=== PATIENT | female | born 1930 | race Caucasian/White ===

== ENCOUNTER 2017-12-01 16:29 | Emergency (ER) | payer MEDICARE, OTHER ==
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
[2017-12-01] MEDS ORDERED: 0.9 % SODIUM CHLORIDE 1,000 ML IV SCH (17:00)
[2017-12-01] MEDS ORDERED: 0.9 % SODIUM CHLORIDE 1,000 ML IV ONE (17:10)
[2017-12-01 17:11] LABS: BASOPHILS % 0.3 (0.0-1.5); EOSINOPHILS % 0.4 % (0.0-6.8); MEAN CORPUSCULAR HEMOGLOBIN 25.9 pg (28.0-34.0); MEAN CORPUSCULAR VOLUME 82.8 fl (80.0-100.0); MONOCYTES % 4.1 % (0.0-11.0); NEUTROPHILS # 6.3 # k/uL (1.4-7.7)
[2017-12-01 17:24] LABS: eGFR (African) > 60; eGFR (Non-African) > 60
[2017-12-01] MEDS ORDERED: cefTRIAXone SODIUM ADVANTAGE 1 GM in NORMAL SALINE ADD-VANTAGE 50 ML IV ONE (17:50)
[2017-12-01] MEDS ORDERED: cefTRIAXone SODIUM 1 GM VIAL ONE (17:56)
[2017-12-01 17:57] LABS: APPEARANCE,URINE CLOUDY (CLEAR); COLOR,URINE YELLOW (YELLOW); OCCULT BLOOD,URINE 2+ (NEGATIVE); UROBILINOGEN URINE 0.2 Eu (0.2-1.0)
--- NOTE | 2017-12-01 18:08 | Diagnostic Imaging Report ---
CASTRO BOWSER [address] [facility] [address] [place] [address]. [id number] Report Submission Date: December 01, 2017 5:48:27 PM CDT Patient Study Name: SERA BENITO Date: December 01, 2017 5:15:14 PM CDT Modality Type: DX Gender: F Description: CHEST : 32 Institution: Physician: CASTRO BOWSER Examination: Portable chest History: Evaluate lungs. FALL TODAY (Hx) Comparison exam: None available. Findings: Single view of the chest demonstrates a normal cardiac and mediastinal silhouette. Patient rotated. Chronic interstitial changes. Lung byrd without focal infiltrate. No blunting of the costophrenic margins. Articular degenerative changes. Impression: Chronic interstitial changes. No acute pulmonary process. Electronically signed on December 01, 2017 5:48:27 PM CDT by: Cedrick GLOVER
--- NOTE | 2017-12-01 18:10 | Diagnostic Imaging Report ---
CASTRO BOWSER [facility] [address] [facility] [address] [place], [place]. [address] Report Submission Date: December 01, 2017 5:59:09 PM CDT Patient Study Name: SERA BENITO Date: December 01, 2017 5:13:29 PM CDT Modality Type: CT\SR Gender: F Description: CT C-SPINE W/O CONTRAS : 32 Institution: [facility] Physician: CASTRO BOWSER Examination: CT cervical spine History: FALL TODAY PATIENT UNABLE TO FOLLOW BREATHING INSTRUCTIONS (Hx) Comparison exams: None provided Technique: CT cervical spine axial imaging with sagittal and coronal reconstruction Findings: Sagittal reconstruction demonstrates normal height and alignment the cervical vertebral bodies. No anterior compression deformity. Anterior, lateral , and posterior osteophytes. Coronal reconstruction does not demonstrate locked or perched facets. Atlantoaxial degenerative changes. Apical parenchymal scarring. Axial imaging obtained from the skull base through T1 Lamina and pedicles are intact. No ossific density within the central canal. Multilevel facet degenerative changes. No prevertebral soft tissue abnormality. Impression: Multilevel degenerative changes. No evidence for vertebral body compression fracture. Electronically signed on December 01, 2017 5:59:09 PM CDT by: Cedrick GLOVER
[2017-12-01 18:20] LABS: CANNABINOIDS NEGATIVE ng/mL (< 50); METHYLENEDIOXYMETHAMPHETAMINE NEGATIVE ng/mL (<500)
--- NOTE | 2017-12-01 18:38 | Diagnostic Imaging Report ---
CASTRO BOWSER [facility] [address] [facility] [address] [place], [place]. [address] Report Submission Date: December 01, 2017 6:26:45 PM CDT Patient Study Name: SERA BENITO Date: December 01, 2017 5:11:03 PM CDT Modality Type: CT\SR Gender: F Description: CT BRAIN W/O CONTRAST : 32 Institution: [facility] Physician: CASTRO BOWSER CT head History: FALL TODAY Multiple axial images of the brain are submitted with reconstructions No comparison studies Frontal scalp hematoma measures x 1.3 cm. Hematoma extends to the left periorbital region where it measures approximately 5.8 x 1.1 cm No evidence of acute intracranial hemorrhage. No midline shift. Cerebral atrophy with extensive periventricular small vessel ischemic disease is present Ethmoid sinuses are partially opacified. There is no obvious skull fracture. Impression: 1.No evidence of acute intracranial hemorrhage. No midline shift 2. Cerebral atrophy with extensive periventricular small vessel ischemic disease. 3. Frontal scalp hematoma. Hematoma extends to the left periorbital region with extensive edema. Please correlate with eye examination Electronically signed on December 01, 2017 6:26:45 PM CDT by: Ania GLOVER
[2017-12-01] MEDS ORDERED: DIPH,PERTUSS(ACELL),TET VAC/PF 0.5 ML DISP.SYRIN IM ONE (19:18)
[2017-12-01 20:15] VITALS: BP 150/82
== END 2017-12-01 19:38 | disposition home or self-care (01) ==
LOC: ED 16:29
DX: S00.03XA Contusion of scalp, initial encounter (principal); S01.81XA Laceration without foreign body of other part of head, initial encounter; N30.01 Acute cystitis with hematuria; Z23 Encounter for immunization; W19.XXXA Unspecified fall, initial encounter; Y93.89 Activity, other specified; Y92.038 Other place in apartment as the place of occurrence of the external cause
CPT/HCPCS: 36415; 70450; 71045; 72125; 80053; 81002; 83036; 85025; 87040; 87086; 87186; 90715; G0480; G0481; J0696; J7030; 12002; 12014; 80320; 80377; 90471; 96365; 96366

== ENCOUNTER 2017-12-01 19:42 | Inpatient (IN) | payer SELFPAY ==
[2017-12-01 17:33] VITALS: BP 157/74
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
== END 2017-12-02 15:00 | disposition home or self-care (01) | DRG 948 ==
LOC: ICF 19:42
PROVIDERS: ADMIT Family Medicine; ATTEND Family Medicine
DX: R53.1 Weakness (principal); Z91.81 History of falling